=== PATIENT | female | born 1940 | race African-American/Black ===

== ENCOUNTER → 2016-03-09 | Outpatient (CLI) | payer MEDICARE, OTHER | END | disposition home or self-care (01) | LOC: PCVCCLINIC 11:30 | PROVIDERS: ATTEND Internal Medicine Cardiovascular Disease | DX: I51.3 Intracardiac thrombosis, not elsewhere classified (principal); I48.91 Unspecified atrial fibrillation | CPT/HCPCS: 85610 ==

== ENCOUNTER → 2016-04-06 | Outpatient (CLI) | payer MEDICARE, OTHER | END | disposition home or self-care (01) | LOC: PCVCCLINIC 09:30 | PROVIDERS: ATTEND Internal Medicine Cardiovascular Disease | DX: I51.3 Intracardiac thrombosis, not elsewhere classified (principal); I48.91 Unspecified atrial fibrillation | CPT/HCPCS: 85610 ==

== ENCOUNTER → 2016-04-13 | Outpatient (CLI) | payer MEDICARE, OTHER | END | disposition home or self-care (01) | LOC: PCVCCLINIC 09:46 | PROVIDERS: ATTEND Internal Medicine Cardiovascular Disease | DX: I51.3 Intracardiac thrombosis, not elsewhere classified (principal); I48.91 Unspecified atrial fibrillation | CPT/HCPCS: 85610 ==

== ENCOUNTER → 2016-04-27 | Outpatient (CLI) | payer MEDICARE, OTHER | END | disposition home or self-care (01) | LOC: PCVCCLINIC 09:58 | PROVIDERS: ATTEND Internal Medicine Cardiovascular Disease | DX: I51.3 Intracardiac thrombosis, not elsewhere classified (principal); I48.91 Unspecified atrial fibrillation | CPT/HCPCS: 85610 ==

== ENCOUNTER → 2016-05-04 | Outpatient (CLI) | payer MEDICARE, OTHER | END | disposition home or self-care (01) | LOC: PCVCCLINIC 09:38 | PROVIDERS: ATTEND Internal Medicine Cardiovascular Disease | DX: I21.29 ST elevation (STEMI) myocardial infarction involving other sites (principal) | CPT/HCPCS: 85610; G0463 ==

== ENCOUNTER → 2016-05-18 | Outpatient (CLI) | payer MEDICARE, OTHER | END | disposition home or self-care (01) | LOC: PCVCCLINIC 09:39 | PROVIDERS: ATTEND Internal Medicine Cardiovascular Disease | DX: I51.3 Intracardiac thrombosis, not elsewhere classified (principal); I48.91 Unspecified atrial fibrillation | CPT/HCPCS: 85610; G0463 ==

== ENCOUNTER → 2016-05-25 | Outpatient (CLI) | payer MEDICARE, OTHER | END | disposition home or self-care (01) | LOC: PCVCCLINIC 11:24 | PROVIDERS: ATTEND Internal Medicine Cardiovascular Disease | DX: I51.3 Intracardiac thrombosis, not elsewhere classified (principal); I48.91 Unspecified atrial fibrillation | CPT/HCPCS: 85610; G0463 ==

== ENCOUNTER → 2016-06-01 | Outpatient (CLI) | payer MEDICARE, OTHER | END | disposition home or self-care (01) | LOC: PCVCCLINIC 10:25 | PROVIDERS: ATTEND Internal Medicine Cardiovascular Disease | DX: I51.3 Intracardiac thrombosis, not elsewhere classified (principal); I48.91 Unspecified atrial fibrillation | CPT/HCPCS: 85610; G0463 ==

== ENCOUNTER → 2016-06-08 | Outpatient (CLI) | payer MEDICARE, OTHER | END | disposition home or self-care (01) | LOC: PCVCCLINIC 09:56 | PROVIDERS: ATTEND Internal Medicine Cardiovascular Disease | DX: I51.3 Intracardiac thrombosis, not elsewhere classified (principal); I48.91 Unspecified atrial fibrillation | CPT/HCPCS: 85610; G0463 ==

== ENCOUNTER → 2016-06-22 | Outpatient (CLI) | payer MEDICARE, OTHER | END | disposition home or self-care (01) | LOC: PCVCCLINIC 11:31 | PROVIDERS: ATTEND Internal Medicine Cardiovascular Disease | DX: I50.9 Heart failure, unspecified (principal); I51.3 Intracardiac thrombosis, not elsewhere classified; I25.10 Atherosclerotic heart disease of native coronary artery without angina pectoris; I63.9 Cerebral infarction, unspecified; J44.9 Chronic obstructive pulmonary disease, unspecified; E11.9 Type 2 diabetes mellitus without complications; E78.00 Pure hypercholesterolemia, unspecified; Q21.1 Atrial septal defect | CPT/HCPCS: 85610 ==

== ENCOUNTER → 2016-08-24 | Outpatient (CLI) | payer MEDICARE, OTHER | END | disposition home or self-care (01) | LOC: PCVCCLINIC 10:25 | PROVIDERS: ATTEND Internal Medicine Cardiovascular Disease | DX: I25.10 Atherosclerotic heart disease of native coronary artery without angina pectoris (principal); E11.9 Type 2 diabetes mellitus without complications; I11.0 Hypertensive heart disease with heart failure; I50.9 Heart failure, unspecified; J44.9 Chronic obstructive pulmonary disease, unspecified; E78.00 Pure hypercholesterolemia, unspecified; I25.2 Old myocardial infarction; I34.0 Nonrheumatic mitral (valve) insufficiency; Z95.810 Presence of automatic (implantable) cardiac defibrillator | CPT/HCPCS: 85610 ==

== ENCOUNTER → 2016-09-21 | Outpatient (CLI) | payer MEDICARE, OTHER | END | disposition home or self-care (01) | LOC: PCVCCLINIC 10:07 | PROVIDERS: ATTEND Internal Medicine Cardiovascular Disease | DX: Z51.81 Encounter for therapeutic drug level monitoring (principal); I63.9 Cerebral infarction, unspecified; J44.9 Chronic obstructive pulmonary disease, unspecified; I25.10 Atherosclerotic heart disease of native coronary artery without angina pectoris; I11.0 Hypertensive heart disease with heart failure; I50.9 Heart failure, unspecified; E11.9 Type 2 diabetes mellitus without complications; E78.00 Pure hypercholesterolemia, unspecified; I25.2 Old myocardial infarction; I34.0 Nonrheumatic mitral (valve) insufficiency; I70.1 Atherosclerosis of renal artery; Z95.810 Presence of automatic (implantable) cardiac defibrillator | CPT/HCPCS: 85610 ==

== ENCOUNTER → 2016-10-20 | Outpatient (CLI) | payer MEDICARE, OTHER | END | disposition home or self-care (01) | LOC: PCVCCLINIC 10:10 | PROVIDERS: ATTEND Internal Medicine Cardiovascular Disease | DX: Z51.81 Encounter for therapeutic drug level monitoring (principal); Q21.1 Atrial septal defect; I21.4 Non-ST elevation (NSTEMI) myocardial infarction; I63.9 Cerebral infarction, unspecified; J44.9 Chronic obstructive pulmonary disease, unspecified; I25.10 Atherosclerotic heart disease of native coronary artery without angina pectoris; E11.9 Type 2 diabetes mellitus without complications; I11.0 Hypertensive heart disease with heart failure; I50.9 Heart failure, unspecified; E78.00 Pure hypercholesterolemia, unspecified; I34.0 Nonrheumatic mitral (valve) insufficiency; I70.1 Atherosclerosis of renal artery; Z95.810 Presence of automatic (implantable) cardiac defibrillator; Z79.82 Long term (current) use of aspirin; Z79.01 Long term (current) use of anticoagulants | CPT/HCPCS: 85610 ==

== ENCOUNTER → 2016-11-20 | Outpatient (CLI) | payer MEDICARE, OTHER ==
--- NOTE | 2016-11-20 17:18 | PCVCIMAG ---
APPROVED REPORT Study performed: 11/20/2016 13:03:25 EXAM: Comprehensive 2D, Doppler, and color-flow Echocardiogram Patient Location: Echo lab Status: routine BSA: 1.63 HR: 78 bpmBP: 102/64 mmHg Rhythm: NSR Other Information Study Quality: Adequate Indications Pacemaker CAD Cardiomyopathy AICD 2D Dimensions LVEF(%): 49.17 (>50%) IVSd: 10.79 (7-11mm) LVDd: 39.42 mm PWd: 10.25 (7-11mm) LVDs: 29.78 (25-40mm) Left Atrium: 35.97 (27-40mm) Aortic Root: 27.58 mm LV Single Plane 4CH: 40.90 % LV Single Plane 2CH: 37.88 %Mireles's LVEF: 39.39 % Biplane EF: 41.4 % Volumes Left Atrial Volume (Systole) Single Plane 4CH: 35.18 mLSingle Plane 2CH: 58.97 mL LA ESV Index: 29.00 mL/m2 Aortic Valve AoV Peak Elvin.: 1.32 m/s AO Peak Gr.: 6.93 mmHgLVOT Max P.22 mmHg LVOT Max V: 0.55 m/s Mitral Valve E/A Ratio: 0.4 MV Decel. Time: 224.36 ms MV E Max Elvin.: 0.29 m/s MV A Elvin.: 0.69 m/s IVRT: 138.41 ms Pulmonary Valve PV Peak Elvin.: 0.84 m/sPV Peak Gr.: 2.84 mmHg Pulmonary Vein P Vein S: 0.47 m/sP Vein A: 0.82 m/s P Vein D: 0.64 m/sP Vein A Dur.: 134.9 msec P Vein S/D Ratio: 0.73 Tricuspid Valve TR Peak Elvin.: 2.68 m/s TR Peak Gr.: 28.76 mmHg Left Ventricle The left ventricle is normal size. There is normal LV segmental wall motion. There is normal left ventricular wall thickness. Left ventricular systolic function is moderate to severely decreased. LVEF is 30-35%. Grade I - abnormal relaxation pattern. Right Ventricle The right ventricle is normal size. The right ventricular systolic function is normal. Atria The left atrium size is normal. The right atrium size is normal. Aortic Valve The aortic valve is moderately sclerotic. No aortic regurgitation is present. There is no aortic valvular stenosis. Mitral Valve The mitral valve is normal in structure. Mild mitral regurgitation. No evidence of mitral valve stenosis. Tricuspid Valve The tricuspid valve is normal in structure. Mild tricuspid regurgitation with PAP of 36 mmHg. Pulmonic Valve The pulmonary valve is normal in structure. There is no pulmonic valvular regurgitation. Great Vessels The aortic root is normal in size. IVC is normal in size and collapses with >50% inspiration Pericardium There is no pericardial effusion. <Conclusion> The left ventricle is normal size. Left ventricular systolic function is moderate to severely decreased. LVEF is 30-35%. Grade I - abnormal relaxation pattern. The right ventricle is normal size. The left atrium size is normal. The aortic valve is moderately sclerotic. Mild mitral regurgitation. There is no pericardial effusion. Mild tricuspid regurgitation with PAP of 36 mmHg.
== END | disposition home or self-care (01) ==
LOC: PCVCIMAG 12:54
PROVIDERS: ATTEND Internal Medicine Cardiovascular Disease
DX: I08.1 Rheumatic disorders of both mitral and tricuspid valves (principal); I25.10 Atherosclerotic heart disease of native coronary artery without angina pectoris; I70.1 Atherosclerosis of renal artery; I42.9 Cardiomyopathy, unspecified; Q21.1 Atrial septal defect; J44.9 Chronic obstructive pulmonary disease, unspecified; E11.9 Type 2 diabetes mellitus without complications; I11.0 Hypertensive heart disease with heart failure; I50.9 Heart failure, unspecified; F17.200 Nicotine dependence, unspecified, uncomplicated; I25.2 Old myocardial infarction; Z95.810 Presence of automatic (implantable) cardiac defibrillator; Z79.82 Long term (current) use of aspirin; Z79.899 Other long term (current) drug therapy; Z90.710 Acquired absence of both cervix and uterus; Z79.01 Long term (current) use of anticoagulants
CPT/HCPCS: 36415; 80061; 85610; 93282; 93306; G0463

== ENCOUNTER → 2017-06-21 | Outpatient (CLI) | payer MEDICARE, OTHER | END | disposition home or self-care (01) | LOC: PCVCCLINIC 13:31 | DX: I42.8 Other cardiomyopathies (principal); D68.59 Other primary thrombophilia; I10 Essential (primary) hypertension; E78.00 Pure hypercholesterolemia, unspecified; Q21.1 Atrial septal defect; R94.31 Abnormal electrocardiogram [ECG] [EKG]; F17.210 Nicotine dependence, cigarettes, uncomplicated; Z79.899 Other long term (current) drug therapy; Z79.82 Long term (current) use of aspirin; Z95.810 Presence of automatic (implantable) cardiac defibrillator | CPT/HCPCS: 93005; 93282; G0463 ==

== ENCOUNTER → 2018-02-11 | Outpatient (CLI) | payer MEDICARE, OTHER ==
--- NOTE | 2018-02-11 17:04 | PCVCIMAG ---
APPROVED REPORT Study performed: 02/11/2018 13:04:55 EXAM: Comprehensive 2D, Doppler, and color-flow Echocardiogram Patient Location: Echo lab Room #: 2Status: routine BSA: 1.63 HR: 71 bpmBP: 126/80 mmHg Rhythm: NSR Other Information Study Quality: Good Risk Factors: Cardiac Risk Factors: HTN Indications Mitral Valve Prolapse Dyspnea Pacemaker Cardiomyopathy 2D Dimensions IVSd: 11.68 (7-11mm)LVOT Diam: 23.31 (18-24mm) LVDd: 49.02 mm PWd: 12.34 (7-11mm)Ascending Ao: 26.22 (22-36mm) LVDs: 35.87 (25-40mm) Left Atrium: 26.38 (27-40mm) Aortic Root: 22.39 mm LV Single Plane 4CH: 49.98 % LV Single Plane 2CH: 46.22 % Biplane EF: 48.1 % Volumes Left Atrial Volume (Systole) Single Plane 4CH: 37.18 mLSingle Plane 2CH: 36.93 mL Biplane LA Volume: 39.00 mLLA ESV Index: 24.00 mL/m2 LV Strain GL Strain(%): 0.05 Aortic Valve AoV Peak Elvin.: 1.48 m/sERO: 0.06 mm2 AO Peak Gr.: 9.71 mmHgLVOT Max P.27 mmHg LVOT Max V: 0.73 m/s USMAN Vmax: 2.11 cm2 Mitral Valve E/A Ratio: 0.5 MV Decel. Time: 107.07 ms MV E Max Elvin.: 0.35 m/s MV A Elvin.: 0.73 m/s Pulmonary Valve PV Peak Elvin.: 0.72 m/sPV Peak Gr.: 2.09 mmHg Pulmonary Vein P Vein S: 0.67 m/sP Vein A: 0.51 m/s P Vein D: 0.54 m/sP Vein A Dur.: 110.7 msec P Vein S/D Ratio: 1.24 Tricuspid Valve TR Peak Elvin.: 3.64 m/s TR Peak Gr.: 52.88 mmHg TV Vmax: 0.54 m/sPA Pressure: 60.00 mmHg Left Ventricle The left ventricle is normal size. There is normal LV segmental wall motion. Mild concentric left ventricular hypertrophy. Left ventricular systolic function mod reduced 35% Grade I - abnormal relaxation pattern. Right Ventricle The right ventricle is normal size. The right ventricular systolic function is normal. Atria The left atrium size is normal. Hx of PFO per pt. Not confirmed by echo. Pacemaker lead is present in the right atrium. Aortic Valve Aortic valve is trileaflet. Aortic valve leaflets are sclerotic but open well. No aortic regurgitation is present. There is no aortic valvular stenosis. Mitral Valve The mitral valve is normal in structure. Mild mitral annular calcification. Moderate mitral regurgitation. No evidence of mitral valve stenosis. Mild prolapse of the posterior mitral valve leaflet. Tricuspid Valve The tricuspid valve is normal in structure. Moderate tricuspid regurgitation with a PA pressure of 60 mmHg. Severe pulmonary hypertension. Pulmonic Valve The pulmonary valve is normal in structure. Mild pulmonic regurgitation. Great Vessels The aortic root is normal in size. The ascending aorta is normal in size. IVC is normal in size and collapses >50% with inspiration. Pericardium Trace pericardial effusion. There is no pleural effusion. <Conclusion> The left ventricle is normal size. Mild concentric left ventricular hypertrophy. 35% Grade I - abnormal relaxation pattern. The right ventricle is normal size. Pacemaker lead is present in the right atrium. Aortic valve is trileaflet. Aortic valve leaflets are sclerotic but open well. There is no aortic valvular stenosis. The mitral valve is normal in structure. Mild mitral annular calcification. Moderate mitral regurgitation. Mild pulmonic regurgitation. Moderate tricuspid regurgitation with a PA pressure of 60 mmHg. Severe pulmonary hypertension. The aortic root is normal in size. Trace pericardial effusion.
== END | disposition home or self-care (01) ==
LOC: PCVCIMAG 12:55
PROVIDERS: ATTEND Internal Medicine Cardiovascular Disease
DX: I42.9 Cardiomyopathy, unspecified (principal); E78.00 Pure hypercholesterolemia, unspecified; Q21.1 Atrial septal defect; I70.1 Atherosclerosis of renal artery; I10 Essential (primary) hypertension; I48.91 Unspecified atrial fibrillation; D68.59 Other primary thrombophilia; I27.20 Pulmonary hypertension, unspecified; J44.9 Chronic obstructive pulmonary disease, unspecified; E11.9 Type 2 diabetes mellitus without complications; F17.210 Nicotine dependence, cigarettes, uncomplicated; Z86.79 Personal history of other diseases of the circulatory system; Z95.810 Presence of automatic (implantable) cardiac defibrillator
CPT/HCPCS: 36415; 80061; 93282; 93306; G0463

== ENCOUNTER → 2018-11-23 | Outpatient (CLI) | payer MEDICARE, OTHER | END | disposition home or self-care (01) | LOC: PCVCCLINIC 14:43 | PROVIDERS: ATTEND Internal Medicine Cardiovascular Disease | DX: I42.8 Other cardiomyopathies (principal); I48.91 Unspecified atrial fibrillation; I51.3 Intracardiac thrombosis, not elsewhere classified; Q21.1 Atrial septal defect; E78.00 Pure hypercholesterolemia, unspecified; I70.1 Atherosclerosis of renal artery; G45.9 Transient cerebral ischemic attack, unspecified; D68.59 Other primary thrombophilia; J44.9 Chronic obstructive pulmonary disease, unspecified; I11.0 Hypertensive heart disease with heart failure; I50.9 Heart failure, unspecified; I25.10 Atherosclerotic heart disease of native coronary artery without angina pectoris; I25.2 Old myocardial infarction; F17.210 Nicotine dependence, cigarettes, uncomplicated; Z90.710 Acquired absence of both cervix and uterus; Z86.73 Personal history of transient ischemic attack (TIA), and cerebral infarction without residual deficits; Z95.810 Presence of automatic (implantable) cardiac defibrillator; Z90.09 Acquired absence of other part of head and neck; Z72.89 Other problems related to lifestyle | CPT/HCPCS: 36415; 80061; 93005; G0463 ==